=== PATIENT | male | born 1940 | race Caucasian/White ===

== ENCOUNTER 2019-07-28 01:44 | Emergency (ER) | payer MEDICARE, OTHER, SELFPAY ==
--- NOTE | 2019-07-28 01:51 | ED_ITS ---
HPI - SOB/Dyspnea General Chief Complaint: Shortness of Breath/Dyspnea Stated Complaint: Shortness of Breath Time Seen by Provider: 07/28/19 01:45 Source: patient, family and EMS Mode of arrival: EMS Limitations: no limitations History of Present Illness HPI Narrative: 78-year-old male nonsmoker with history of hypertension, hyperlipidemia and as yet undiagnosed episodes of breath holding, seizure-like activity versus TIA presents by EMS for evaluation of an episode of shaking and decreased responsiveness this morning. Patient went about his normal business yesterday in a normal state of health without any complaints and went to bed under similar circumstances. He has obstructive sleep apnea and sleeps with a CPAP and his noticed that he seemed to be making more noise than normal and was struggling to breathe. The patient was awake and alert but not quite is aware as she would have expected him to be, he was however responding to her questions though sluggishly. The episode of apparent difficulty lasted longer than she was comfortable with and they contacted EMS for transport. He denies any headache or neck pain. He has had no fever, chills, sore throat or chest pain. He has had a few of these episodes in the past with very extensive evaluations at his local hospital in [place] and has included neurology and MRI as well as EEG without any specific diagnosis MD Complaint: shortness of breath Onset (ago): minute(s) Severity: moderate Consistency/Duration: now resolved Relieving factors: nothing Exacerbating factors: nothing Treatment prior to arrival: oxygen Related Data Home oxygen amount: none Previous Rx's Medication Instructions Recorded cephalexin [Keflex] 500 mg PO QID 7 Days #28 cap 07/28/19 Allergies Allergy/AdvReac Type Severity Reaction Status Date / Time erythromycin base Allergy Verified 07/28/19 02:23 Review of Systems Constitutional Constitutional: Denies chills, Denies fatigue, Denies fever(s), Denies frequent falls, Denies lethargy and Denies weakness Eyes Eyes: Denies change in vision, Denies eye discharge, Denies irritation and Denies loss of vision ENT Ears, Nose, Mouth, and Throat: Denies change in voice, Denies dizziness, Denies neck pain, Denies sore throat and Denies throat swelling Cardiovascular Cardiovascular: Denies chest pain, Denies irregular heart rhythm, Denies lightheadedness, Denies palpitations, Denies dyspnea, Denies dyspnea on exertion and Denies orthopnea Respiratory Respiratory: Denies cough, Denies dyspnea, Denies dyspnea on exertion and Denies wheezing Gastrointestinal Gastrointestinal: Denies abdominal pain, Denies change in bowel habits, Denies diarrhea, Denies nausea and Denies vomiting Genitourinary Genitourinary: Denies hematuria, Denies flank pain, Denies urinary incontinence and Denies urinary urgency Musculoskeletal Musculoskeletal: Denies back pain, Denies muscle weakness, Denies neck pain, Denies numbness and Denies tingling Integumentary/Breasts Skin/Breast: Denies pruritus, Denies erythema, Denies rash and Denies wounds Neurologic Neurologic: Denies behavioral changes, Denies confusion, Denies dizziness, Denies frequent falls, Denies loss of vision, Denies numbness, Denies tingling and Denies weakness Psychiatric Psychiatric: Denies anxiety, Denies behavioral changes, Denies confusion, Denies depression, Denies homicidal ideation and Denies suicidal ideation Endocrine Endocrine: Denies fatigue, Denies flushing and Denies palpitations Hematologic/Lymphatic Hematologic/Lymphatic: Denies easy bruising Allergic/Immunologic Allergic/Immunologic: Denies urticaria, Denies throat swelling and Denies wheezing Patient History Social History Smoking Status: Never smoker Substance Use Type: does not use Exam Narrative Exam Narrative: GENERAL: [78] year old patient appears stated age. Well- nourished, well-developed patient, in mild distress. HEAD: Atraumatic. Normocephalic. EYES: Pupils equal round and reactive. Extraocular motions intact. No scleral icterus. No injection or drainage. ENT: Nose without bleeding, purulent drainage. Throat without erythema, t onsillar hypertrophy or exudate. Airway patent. NECK: Trachea midline. Non tender CARDIOVASCULAR: Regular rate and rhythm without murmurs, gallops, or rubs. RESPIRATORY: Clear to auscultation. Breath sounds equal bilaterally. No wheezes, rales, or rhonchi. GASTROINTESTINAL: Abdomen soft, non-tender, nondistended. EXTREMITIES: No edema or joint tenderness. BACK: Nontender without deformity or crepitance. No flank tenderness. NEURO: AOx3. SKIN: No rash or erythema of visible areas NIH Stroke Scale 1a. LOC: Patient is alert and keenly responsive (0) 1b. LOC Questions: Patient answers both LOC questions accurately (0) 1c. LOC Commands: Patient performs both tasks correctly (0) 2. Best Gaze: Normal (0) 3. Visual: No visual loss (0) 4. Facial palsy: Normal symmetrical movements (0) 5. Motor arm: No drift (0) 6. Motor leg: No drift (0) 7. Limb ataxia: Absent (0) 8. Sensory: Normal (0) 9. Best language: No aphasia; normal (0) 10. Dysarthria: Normal (0) 11. Extinction and inattention: No abnormality (0) NIHSS: 0 Initial Vital Signs Initial Vital Signs: Vital Signs Temperature 97.6 F 07/28/19 02:03 Pulse Rate 73 07/28/19 02:03 Respiratory Rate 15 07/28/19 02:03 Blood Pressure 159/96 H 07/28/19 02:03 Pulse Oximetry 100 07/28/19 02:03 Scores GCS Irena coma scale eye opening: Spontaneous Orma coma scale verbal response: Orientated Orma coma scale motor response: Obey commands Irena coma scale total score: 15 Course Course Course Narrative: DDimer, though elevated, is considered negative when age cor rected. No need to pursue PE with CTA Orders Ordered: ED Orders 07/28/19 01:33 B Type Natriuretic Peptide Stat Basic Metabolic Panel Stat Complete Blood Count AUTO DIFF Stat D Dimer Stat Magnesium Stat Procalcitonin Stat Prolactin Stat Troponin & CK Cardiac Panel Stat 07/28/19 01:52 Consult to Respiratory Therapy Evaluate & Treat XR chest 1V Stat EKG-12 Lead Stat 07/28/19 02:20 Blood Culture Stat Lactate (Lactic Acid) Stat 07/28/19 02:24 CT head/brain wo con Stat 07/28/19 02:30 Urine Culture Stat Urine Microscopic Stat Sodium Chloride (Normal Saline 0.9%) 1,000 mls @ 150 mls/hr IV CONT SAI Last Admin: 07/28/19 02:24 Dose: 150 mls/hr Documented by: ELKE Discontinued Medications Cefazolin Sodium (Keflex 250 Mg Prepack) 1 bottle MISC SEEINSTR ONE Stop: 07/28/19 03:43 Last Admin: 07/28/19 03:49 Dose: 1 bottle Documented by: MIKE Vital Signs Vital signs: Vital Signs - 8 hr 07/28/19 02:03 07/28/19 03:00 07/28/19 03:30 Temperature 97.6 F Pulse Rate 73 67 63 Respiratory Rate 15 17 15 Blood Pressure 159/96 H Blood Pressure [Right Arm] 156/75 H 152/69 H Pulse Oximetry 100 95 95 07/28/19 04:02 Temperature Pulse Rate 64 Respiratory Rate 18 Blood Pressure 150/70 H Blood Pressure [Right Arm] Pulse Oximetry 98 MDM - SOB/Dyspnea Lab Data Result diagrams: 07/28/19 01:33 07/28/19 01:33 Labs: Lab Results 07/28/19 07/28/19 07/28/19 Range/Units 01:33 01:33 01:33 WBC 6.9 (4.5-11.0) X10^3/uL RBC 4.49 L (4.5-5.9) X10^6/uL Hgb 14.3 (13.5-17.5) g/dL Hct 41.0 (41-53) % MCV 91.2 (80-100) fL MCH 31.8 (26-34) PG MCHC 34.8 (30-36) % RDW 13.0 (11.6-14.8) % Plt Count 141 L (150-400) X10^3/uL Neut % (Auto) 57.9 (50-75) % Lymph % (Auto) 28.8 (25-40) % Holmes % (Auto) 10.4 (3-14) % Eos % (Auto) 1.9 L (2-4) % Baso % (Auto) 1.0 (0-2) % Neut # (Auto) 4000 (5143-7399) /uL Lymph # (Auto) 2000 (4010-9173) /uL Holmes # (Auto) 700 (0-900) /uL Eos # (Auto) 100 (0-450) /uL Baso # (Auto) 100 (0-100) /uL D-Dimer 356 H (<230) ng/mL Sodium 134 L (137-145) mmol/L Potassium 4.5 (3.4-5.1) mmol/L Chloride 100 (98-107) mmol/L Carbon Dioxide 26 (22-32) mmol/L BUN 20 (9-20) mg/dL Creatinine 0.90 (0.66-1.25) mg/dL Estimated GFR > 60.0 (>60) mL/min BUN/Creatinine Ratio 22.2 H (6-22) Glucose 101 (80-110) mg/dL Lactate (0.7-2.1) mmol/L Calcium 9.9 (8.4-10.2) mg/dL Magnesium 2.2 (1.6-2.3) mg/dL Total Creatine Kinase 66 (55-170) U/L CK-MB (CK-2) TNP CK-MB (CK-2) Rel Index TNP Troponin I < 0.012 (0.01-0.034) ng/mL B-Natriuretic Peptide < 100 (<100) Procalcitonin (<0.5) ng/mL Prolactin (3.7-17.9) ng/mL Urine RBC (0-5/HPF) Urine WBC (0-5/HPF) Urine Bacteria (None) Ur Culture Indicated? 07/28/19 07/28/19 07/28/19 Range/Units 01:33 01:33 02:20 WBC (4.5-11.0) X10^3/uL RBC (4.5-5.9) X10^6/uL Hgb (13.5-17.5) g/dL Hct (41-53) % MCV (80-100) fL MCH (26-34) PG MCHC (30-36) % RDW (11.6-14.8) % Plt Count (150-400) X10^3/uL Neut % (Auto) (50-75) % Lymph % (Auto) (25-40) % Holmes % (Auto) (3-14) % Eos % (Auto) (2-4) % Baso % (Auto) (0-2) % Neut # (Auto) (9078-0274) /uL Lymph # (Auto) (2499-0248) /uL Holmes # (Auto) (0-900) /uL Eos # (Auto) (0-450) /uL Baso # (Auto) (0-100) /uL D-Dimer (<230) ng/mL Sodium (137-145) mmol/L Potassium (3.4-5.1) mmol/L Chloride (98-107) mmol/L Carbon Dioxide (22-32) mmol/L BUN (9-20) mg/dL Creatinine (0.66-1.25) mg/dL Estimated GFR (>60) mL/min BUN/Creatinine Ratio (6-22) Glucose (80-110) mg/dL Lactate 2.3 H (0.7-2.1) mmol/L Calcium (8.4-10.2) mg/dL Magnesium (1.6-2.3) mg/dL Total Creatine Kinase (55-170) U/L CK-MB (CK-2) CK-MB (CK-2) Rel Index Troponin I (0.01-0.034) ng/mL B-Natriuretic Peptide (<100) Procalcitonin < 0.05 (<0.5) ng/mL Prolactin 47.7 H (3.7-17.9) ng/mL Urine RBC (0-5/HPF) Urine WBC (0-5/HPF) Urine Bacteria (None) Ur Culture Indicated? 07/28/19 Range/Units 02:30 WBC (4.5-11.0) X10^3/uL RBC (4.5-5.9) X10^6/uL Hgb (13.5-17.5) g/dL Hct (41-53) % MCV (80-100) fL MCH (26-34) PG MCHC (30-36) % RDW (11.6-14.8) % Plt Count (150-400) X10^3/uL Neut % (Auto) (50-75) % Lymph % (Auto) (25-40) % Holmes % (Auto) (3-14) % Eos % (Auto) (2-4) % Baso % (Auto) (0-2) % Neut # (Auto) (2368-1632) /uL Lymph # (Auto) (3188-1174) /uL Holmes # (Auto) (0-900) /uL Eos # (Auto) (0-450) /uL Baso # (Auto) (0-100) /uL D-Dimer (<230) ng/mL Sodium (137-145) mmol/L Potassium (3.4-5.1) mmol/L Chloride (98-107) mmol/L Carbon Dioxide (22-32) mmol/L BUN (9-20) mg/dL Creatinine (0.66-1.25) mg/dL Estimated GFR (>60) mL/min BUN/Creatinine Ratio (6-22) Glucose (80-110) mg/dL Lactate (0.7-2.1) mmol/L Calcium (8.4-10.2) mg/dL Magnesium (1.6-2.3) mg/dL Total Creatine Kinase (55-170) U/L CK-MB (CK-2) CK-MB (CK-2) Rel Index Troponin I (0.01-0.034) ng/mL B-Natriuretic Peptide (<100) Procalcitonin (<0.5) ng/mL Prolactin (3.7-17.9) ng/mL Urine RBC None seen (0-5/HPF) Urine WBC 30-100/hpf H (0-5/HPF) Urine Bacteria Few (2-10) H (None) Ur Culture Indicated? Specimen cultured Urine Dip Bedside Urine Glucose Negative Bedside Urine Bilirubin - Negative Bedside Urine Ketone - Negative Urine Specific [place] 1.010 Bedside Urine Occult Blood - Negative Bedside Urine pH 7.5 Bedside Urine Protein - Negative Bedside Urine Urobilinogen - Negative Bedside Urine Nitrite - Negative Bedside Urine Leukocytes ++ 125 Esterase MDM Narrative Medical decision making narrative: Multiple etiologies for patient's symptoms considered including: [Sleep apnea versus seizure versus startle response versus other] Patient's symptoms improved or duration of stay with above-stated therapies. Findings and discharge diagnosis discussed with patient/family followed by verbalization of understanding Return precautions discussed with patient/family whom verbalize understanding. Discharge Plan Departure Patient Disposition: Home Clinical Impression: Episode of shaking, Acute UTI Discharge Date/Time: 07/28/19 04:09 Instructions: DI for Urinary Tract Infection (UTI), DI for Psychogenic Nonepileptic Seizures, DI for Seizure (Not Epilepsy/Seizure Disorder) Activity Restrictions/Additional Instructions: *You have been diagnosed with [episode of shaking and difficulty breathing resolved] *What to do: * continue to take medications as directed *Follow up with your primary care provider in 2-3 days, call for an appointment. Let them know you were seen in the Emergency Department and that we ask that you be seen in follow up *Return to ER if you should have any new, worsening or concerning symptoms Prescriptions: New cephalexin [Keflex] 500 mg capsule 500 mg PO QID 7 Days Qty: 28 RF: 0
--- NOTE | 2019-07-28 01:52 | DI.RAD.S_ITS ---
PROCEDURE: XR CHEST 1V INDICATIONS: SOB TECHNIQUE: One view of the chest was acquired. COMPARISON: None. FINDINGS: Surgical changes and devices: None. Lungs and pleura: Lungs are clear considering reduced inspiration. No pleural effusions or pneumothorax. Mediastinum: Mediastinal contours appear normal. Heart size is normal. Bones and chest wall: No suspicious bony lesions. Overlying soft tissues appear unremarkable. IMPRESSION: Normal expiratory chest, source of shortness of breath is not seen. Dictated by: Gt Szymanski M.D. on 07/28/2019 at 8:12 Approved by: Gt Szymanski M.D. on 07/28/2019 at 8:12
[2019-07-28 02:03] VITALS: BP 159/96; PULSE 73; RESP 15; TEMP 36.4; O2SAT 100; BMI 25.5
[2019-07-28 02:11] LABS: Add Manual Diff / Slide Review NO; Basophils Absolute Auto 100 /uL (0-100); Eosinophils Absolute Auto 100 /uL (0-450); Eosinophils Percent Auto 1.9 % (2-4); Hemoglobin 14.3 g/dL (13.5-17.5); Lymphocytes Absolute Auto 2000 /uL (1100-4500); Lymphocytes Percent Auto 28.8 % (25-40); Mean Corpuscular HGB Conc 34.8 % (30-36); Mean Corpuscular Hemoglobin 31.8 PG (26-34); Mean Corpuscular Volume 91.2 fL (80-100); Monocytes Absolute Auto 700 /uL (0-900); Monocytes Percent Auto 10.4 % (3-14); Neutrophils Absolute Auto 4000 /uL (1500-7000); Neutrophils Percent Auto 57.9 % (50-75); Platelet Count 141 X10^3/uL (150-400); Red Blood Cell Count 4.49 X10^6/uL (4.5-5.9); White Blood Cell Count 6.9 X10^3/uL (4.5-11.0)
[2019-07-28 02:16] LABS: D Dimer 356 ng/mL (<230)
[2019-07-28 02:18] LABS: BUN Creatinine Ratio 22.2 (6-22); Blood Urea Nitrogen 20 mg/dL (9-20); Calcium 9.9 mg/dL (8.4-10.2); Carbon Dioxide 26 mmol/L (22-32); Chloride 100 mmol/L (98-107); Creatine Kinase 66 U/L (55-170); Estimated Glomerular Filt Rate > 60.0 mL/min (>60); Glucose 101 mg/dL (80-110); HEMOLYSIS 91 (0-50); Magnesium 2.2 mg/dL (1.6-2.3); Sodium 134 mmol/L (137-145)
[2019-07-28 02:19] LABS: Potassium 4.5 mmol/L (3.4-5.1)
[2019-07-28] MEDS: SODIUM CHLORIDE 0.9% 1,000 ML 150 ML IV (02:24)
--- NOTE | 2019-07-28 02:24 | DI.CT.S_ITS ---
PROCEDURE: CT HEAD/BRAIN WO CON INDICATIONS: seizure like activity, MS change, remote history of same TECHNIQUE: Noncontrast 4.5 mm thick angled axial sections acquired from the foramen magnum to the vertex, with coronal and sagittal reformats. For radiation dose reduction, the following was used: automated exposure control, adjustment of mA and/or kV according to patient size. COMPARISON: None. FINDINGS: Image quality: Excellent. CSF spaces: Basal cisterns are patent. No suspicious extra-axial fluid collections. There is an ovoid, CSF attenuation extra-axial mass versus collection measuring approximately 3.6 cm in size overlying the left posterior parietal lobe with associated mass effect. No underlying vasogenic edema of the adjacent left posterior parietal lobe. The ventricles are symmetric in size and shape. Brain: No intracranial bleeds or masses. There is cerebral volume loss for age, with resultant ventricular and sulcal prominence. There are periventricular and deep white matter chronic small vessel ischemic changes. There is intracranial internal carotid artery atherosclerosis. Skull and face: Calvarium and visualized facial bones appear intact, without suspicious lesions. Sinuses: Visualized sinuses and mastoids are clear. IMPRESSION: 1. CT head without acute intracranial abnormalities. 2. A 3.6 cm CSF-attenuation extra-axial cyst in the left posterior parietal region compatible with an arachnoid cyst. Consider outpatient MRI for further characterization. No significant discrepancy with the [facility] shift lead radiology preliminary report. Dictated by: Jeremy Joyce M.D. on 07/28/2019 at 7:44 Approved by: Jeremy Joyce M.D. on 07/28/2019 at 7:48
[2019-07-28 02:28] LABS: B Type Natriuretic Peptide < 100 (<100)
[2019-07-28 02:30] LABS: Troponin I < 0.012 ng/mL (0.01-0.034)
[2019-07-28 02:39] LABS: Lactate (Lactic Acid) 2.3 mmol/L (0.7-2.1)
[2019-07-28 02:40] LABS: Procalcitonin < 0.05 ng/mL (<0.5)
[2019-07-28 02:46] LABS: RBC Urine None Seen (0-5/HPF)
[2019-07-28 02:54] LABS: Bacteria Urine Few (2-10); WBC Urine 30-100/HPF (0-5/HPF)
[2019-07-28 02:55] LABS: Culture Indicated Urine Specimen Cultured
[2019-07-28 03:00] VITALS: BP 156/75; PULSE 67; RESP 17; O2SAT 95
[2019-07-28 03:28] LABS: Prolactin 47.7 ng/mL (3.7-17.9)
[2019-07-28 03:30] VITALS: BP 152/69; PULSE 63; RESP 15; O2SAT 95
[2019-07-28] MEDS: cephALEXin 250 MG PREPACK 1 BOTTLE MISC (03:49)
[2019-07-28 04:02] VITALS: BP 150/70; PULSE 64; RESP 18; O2SAT 98
[2019-07-28 04:25] LABS: Reflexed Lactate in 2 Hours Y
== END 2019-07-28 04:09 | disposition home or self-care (01) ==
PROVIDERS: Emergency Provider Emergency Medicine
DX: R25.1 Tremor, unspecified (principal); N39.0 Urinary tract infection, site not specified; I10 Essential (primary) hypertension; E78.5 Hyperlipidemia, unspecified; G47.33 Obstructive sleep apnea (adult) (pediatric)
CPT/HCPCS: 36415; 70450; 71045; 80048; 81003; 81015; 82550; 83605; 83735; 83880; 84145; 84146; 84484; 85025; 85379; 87040; 87086; 93005; 96360; 96361; 99283; 99285